=== PATIENT | female | born 1980 | race Caucasian/White ===

== ENCOUNTER 2021-02-05 00:56 | Emergency (ER) | payer SELFPAY ==
[~2021-02-05] VITALS: Ht 162.6 cm; Wt 81.8 kg
[2021-02-05 01:00] VITALS: TEMP 98
[2021-02-05 02:34] VITALS: BP 128/78; PULSE 76
== END 2021-02-05 02:34 | disposition home or self-care (01) ==
LOC: COL.ER 00:56
DX: J06.9 Acute upper respiratory infection, unspecified (principal); J45.909 Unspecified asthma, uncomplicated; F17.200 Nicotine dependence, unspecified, uncomplicated; Z20.822 Contact with and (suspected) exposure to COVID-19
CPT/HCPCS: J1885; J2405; J7030

== ENCOUNTER 2021-11-12 06:05 | Emergency (ER) | payer SELFPAY ==
[~2021-11-12] VITALS: Ht 157.5 cm; Wt 63.6 kg
[~2021-11-12 06:05] MED LIST: FERRO-TIME325 MG PO; PROTONIX 40MG T40 MG PO; ROXICODONE 55 MG/TAB PO; VENOFER IV; ZOFRAN ODT4 MG PO
[2021-11-12 07:12] VITALS: TEMP 99.7
[2021-11-12 07:24] LABS: BASO # 0.1 K/mm3 (0.0-0.2); BASO % 0.4 % (0.0-2.0); EOS # 0.1 K/mm3 (0.0-0.7); EOS % 0.4 % (0.0-4.0); GRAN # 13.5 K/mm3 (1.4-6.5); GRAN % 82.7 % (42.2-75.2); LYMPH # 1.2 K/mm3 (1.2-3.4); LYMPH % 7.3 % (20.0-51.0); MEAN CELL VOLUME 70 fl (80.0-100.0); MEAN CORPUSCULAR HGB CONC 33 g/dl (33.0-37.0); MEAN PLATELET VOLUME 9.8 fl (7.4-10.4); MONO # 1.4 K/mm3 (0.1-0.6); MONO % 8.3 % (1.7-9.3); PLATELET COUNT 253 K/mm3 (130-400); RED BLOOD COUNT 4.01 M/mm3 (4.10-5.30); REDCELL DISTRIBUTION WIDTH-CV 14.3 % (11.5-14.5)
[2021-11-12 07:27] LABS: HEMOGLOBIN 9.1 g/dl (12.5-16.0); MEAN CORPUSCULAR HEMOGLOBIN 23 pg (27-31)
[2021-11-12 07:42] LABS: ALANINE AMINOTRANSFERASE 43 U/L (0-55); ALBUMIN 3.3 gm/dL (3.5-5.0); ALKALINE PHOSPHATASE 137 U/L (40-150); ANION GAP 11 mmol/L (7-16); AST,SGOT 41 U/L (5-34); BILIRUBIN,TOTAL 2.2 mg/dL (0.2-1.2); BLOOD UREA NITROGEN 9 mg/dL (7-19); CALCIUM 8.8 mg/dL (8.4-10.2); CARBON DIOXIDE 21 mmol/L (22-29); CHLORIDE 101 mmol/L (98-107); CREATININE, serum 0.75 mg/dL (0.57-1.11); GLUCOSE 109 mg/dL (70-99); LIPASE 8 U/L (8-78); SODIUM 133 mmol/L (136-145); TOTAL PROTEIN 7.4 gm/dL (6.2-8.1)
[2021-11-12 07:49] LABS: TROPONIN-I < 0.010 ng/mL (0.00-0.033)
[2021-11-12 14:27] VITALS: BP 112/70; PULSE 90
== END 2021-11-12 14:27 | disposition short-term general hospital (02) ==
LOC: COL.ER 06:05
PROVIDERS: Emergency Medicine
DX: R51.9 Headache, unspecified (principal); R11.2 Nausea with vomiting, unspecified; R50.9 Fever, unspecified; Z87.891 Personal history of nicotine dependence; Z86.69 Personal history of other diseases of the nervous system and sense organs; Z91.040 Latex allergy status; Z20.822 Contact with and (suspected) exposure to COVID-19; Z28.310 Unvaccinated for COVID-19
CPT/HCPCS: C1751; J1956; J2270; J7030; J7120; Q9967